=== PATIENT | female | born 2005 | race Caucasian/White ===

== ENCOUNTER 2024-04-04 02:29 | Inpatient (IN) | payer OTHER ==
[2024-04-04 04:10] LABS: HEMOGLOBIN 12.9 GM/dL (10.7-15.3); WHITE BLOOD COUNT 14.2 K/mm3 (4.0-10.0)
[2024-04-04 04:18] LABS: BASO % 0.1 % (0-2.0); EOS % 0.9 % (0-4.5); HEMATOCRIT 36.4 % (32.4-45.2); LYMPH % 26.2 % (8-40); MCH 29.2 pg (25.7-33.7); MCHC 35.3 g/dl (32.0-36.0); MEAN CELL VOLUME 82.7 fl (80-96); MEAN PLT VOLUME 7.3 fl (7.5-11.1); MONO % 6.3 % (3.8-10.2); NEUT % 66.5 % (42.8-82.8); PLATELET COUNT 242 10^3/uL (134-434); RBC 4.41 M/mm3 (3.60-5.2); RDW 14.9 % (11.6-15.6)
[2024-04-04 04:26] LABS: POTASSIUM 3.5 mmol/L (3.5-5.1)
[2024-04-04 04:27] LABS: CALCIUM 8.9 mg/dL (8.5-10.1)
[2024-04-04 04:30] LABS: CREATININE 0.6 mg/dL (0.55-1.3)
[2024-04-04 04:48] LABS: INR 0.98 (0.83-1.09); PROTHROMBIN TIME (PATIENT) 11.1 SEC (9.7-13.0)
[2024-04-04] MEDS ORDERED: FENTANYL/BUPIVACAINE/NS/PF - PCEA - 50 ML DISP.SYRIN EP ONE (04:50)
[2024-04-04] MEDS: FENTANYL/BUPIVACAINE/NS/PF - PCEA - 50 ML DISP.SYRIN EP SCH (04:50)
[2024-04-04 06:09] VITALS: BMI 31.4
[2024-04-04] MEDS: ELECTROLYTE-148 SOLN 1,000 ML IV SCH ×2 (06:12→08:45)
[2024-04-04] MEDS ORDERED: NALOXONE HCL 0.4 MG/ML VIAL IVPUSH PRN (06:39)
[2024-04-04] MEDS ORDERED: OXYTOCIN 20 UNITS in 0.9% NS 20 UNIT/1,000 ML INFUS.BAG IV ONE (07:37)
[2024-04-04] MEDS: OXYTOCIN 20 UNITS in 0.9% NS 20 UNIT/1,000 ML INFUS.BAG IV SCH (08:03)
[2024-04-04] MEDS ORDERED: LIDOCAINE HCL 1% PRESERVATIVE FREE - 30ML VIAL ONE (08:10)
[2024-04-04] MEDS: METHYLERGONOVINE MALEATE 0.2 MG/1 ML AMP IM PRN (08:17)
[2024-04-04] MEDS ORDERED: BISACODYL 10 MG SUPP.RECT RC PRN (08:39)
[2024-04-04 08:46] LABS: CORD BASE EXCESS -8.3 mmol/L (0-2); CORD HCO3 18.1 mmHg (20-29); CORD PCO2 40.2 mmHg (30-78); CORD pH 7.271 (7.14-7.44)
[2024-04-04 08:47] LABS: CORD BASE EXCESS -7.6 mmol/L (0-2); CORD HCO3 19.9 mmHg (20-29); CORD PCO2 47.5 mmHg (30-78); CORD pH 7.24 (7.14-7.44)
[2024-04-04] MEDS ORDERED: ACETAMINOPHEN 325 MG TABLET (FP) ONE (10:15)
[2024-04-04] MEDS: ACETAMINOPHEN 325 MG TABLET (FP) PO PRN (10:19)
[2024-04-04] MEDS: BENZOCAINE 20% 57 GM BOTTLE TP PRN (18:12)
[2024-04-04] MEDS: IBUPROFEN 600 MG TABLET (FP) PO PRN (19:45)
[2024-04-05 08:12] LABS: BASO % 0.2 % (0-2.0); EOS % 0.4 % (0-4.5); HEMATOCRIT 27.1 % (32.4-45.2); HEMOGLOBIN 9.4 GM/dL (10.7-15.3); LYMPH % 12.6 % (8-40); MCH 29.1 pg (25.7-33.7); MCHC 34.7 g/dl (32.0-36.0); MEAN CELL VOLUME 83.9 fl (80-96); MEAN PLT VOLUME 7.1 fl (7.5-11.1); MONO % 6.1 % (3.8-10.2); NEUT % 80.7 % (42.8-82.8); PLATELET COUNT 167 10^3/uL (134-434); RBC 3.23 M/mm3 (3.60-5.2); RDW 14.9 % (11.6-15.6)
[2024-04-05 18:17] VITALS: RESP 18
[2024-04-05] MEDS: BENZOCAINE 28 GM HEMORRHOIDAL OINTMENT TP PRN (20:48)
[2024-04-05] MEDS: WITCH HAZEL 50% (TUCKS) 40 PAD/JAR PAD TP PRN (20:48)
[2024-04-05] MEDS ORDERED: SENNOSIDES/DOCUSATE COMBO (SENNA PLUS) TABLET (UD) PO PRN (22:00)
[2024-04-06 09:47] VITALS: BP 123/70; PULSE 94; TEMP 98.1
== END 2024-04-06 11:35 | disposition home or self-care (01) | DRG 807 ==
LOC: JDEL 02:29 → JLDR 03:35 → J3W 10:55
PROVIDERS: ADMIT Obstetrics & Gynecology; ATTEND Obstetrics & Gynecology
PROC: 10D07Z6 Extraction of Products of Conception, Vacuum, Via Natural or Artificial Opening (ICD-10-PCS; principal; 2024-04-04)
PROC: 0UQMXZZ Repair Vulva, External Approach (ICD-10-PCS; 2024-04-04)
DX: O71.82 Other specified trauma to perineum and vulva (principal); Z37.0 Single live birth; Z3A.40 40 weeks gestation of pregnancy
CPT/HCPCS: 36415; 36600; 59025; 59409; 80048; 82803; 85025; 85610; 85730; 86780; 86850; 86900; 86901